=== PATIENT | female | born 1995 | race Caucasian/White ===

== ENCOUNTER 2017-07-29 12:54 | Emergency (ER) | payer MEDICAID ==
[2017-07-29 13:36] VITALS: PULSE 67; RESP 16; TEMP 98.2; O2SAT 97
[2017-07-29 13:48] LABS: COLOR YELLOW; LEUKOCYTE ESTERASE,URINE NEGATIVE (NEGATIVE); NITRITE,URINE NEGATIVE (NEGATIVE)
--- NOTE | 2017-07-29 13:49 | EDPHY ---
H & P Time Seen by Provider: 07/29/17 13:30 HPI/ROS: Chief complaint. Abdominal pain HPI. 22-year-old female presents with upper abdominal pain for 2 days. She describes it has pressure in the epigastrium with some radiation to her back. Nausea without vomiting or diarrhea. Hurts to move. No chest discomfort or shortness of breath. No fever. She does have burning with urination. She has had previous similar symptoms especially around menstrual period. She currently has menstrual period. ROS Constitutional. no fever/chills, no weakness Eyes. no problems with vision ENT. no sore throat, no nasal drainage Cardiovascular. no chest pain Respiratory. no shortness of breath, no cough Abdominal. Upper abdominal pain with nausea . no problems urinating MS. no calf pain/swelling, no neck/back pain, no joint pain Skin. no rash Lymph. no swollen glands Neuro. no headache, no dizziness, no difficulty walking or with speech Past Medical/Surgical History: Cholecystectomy, , asthma Social History: Single, daily smoker, no alcohol Smoking Status: Light smoker Physical Exam: General Appearance: Alert pleasant well-developed female mild distress vital signs are stable Eyes: Pupils equal and round no pallor or injection. ENT, Mouth: Mucous membranes are moist. Respiratory: There are no retractions, lungs are clear to auscultation. Cardiovascular: Regular rate and rhythm. Gastrointestinal: Epigastric tenderness without masses. Normal bowel sounds Neurological: Awake and alert, sensory and motor exams grossly normal. Skin: Warm and dry, no rashes. Musculoskeletal: Neck is supple nontender. Extremities symmetrical, full range of motion. Psychiatric: Patient is oriented X 3, there is no agitation. Constitutional: Initial Vital Signs Temperature (C) 36.8 C 07/29/17 13:34 Heart Rate 67 07/29/17 13:34 Respiratory Rate 16 07/29/17 13:34 Blood Pressure 117/65 07/29/17 13:34 O2 Sat (%) 97 07/29/17 13:34 O2 Delivery Mode Room Air Allergies/Adverse Reactions: Sulfa (Sulfonamide Antibiotics) Allergy (Severe, Verified 07/29/17 13:36) ANAPHYLACTIC Home Medications: Medication Instructions Recorded Albuterol [Proventil Inhaler (RX)] 1 - 2 puffs IH Q4 01/28/13 Cephalexin [Keflex (*)] 500 mg PO TID #21 cap 07/29/17 Famotidine [Pepcid] 40 mg PO DAILY #7 tablet 07/29/17 Medical Decision Making - Diagnostics Imaging Results: Imaging Impressions Abdomen X-Ray 07/29/17 13:58 Impression: Normal upright abdomen. Procedures: IV normal saline. GI cocktail. ED Course/Re-evaluation: Recheck at 2:35 p.m. patient is stable. Patient and I discussed imaging and lab results. We discussed treatment plan including criteria for return importance of follow-up and further evaluation. She expresses understanding and agreement Differential Diagnosis: I have considered gastritis, peptic ulcer disease, pancreatitis. Patient also had dysuria and she does have a urinary tract infection - Data Points Laboratory Results: Laboratory Results 07/29/17 14:20 07/29/17 14:20 07/29/17 07/29/17 07/29/17 14:20 14:20 14:20 WBC 7.59 10^3/uL 10^3/uL (3.80-9.50) RBC 4.98 10^6/uL 10^6/uL (4.18-5.33) Hgb 14.6 g/dL g/dL (12.6-16.3) Hct 42.6 % % (38.0-47.0) MCV 85.5 fL fL (81.5-99.8) MCH 29.3 pg pg (27.9-34.1) MCHC 34.3 g/dL g/dL (32.4-36.7) RDW 13.3 % % (11.5-15.2) Plt Count 252 10^3/uL 10^3/uL (150-400) MPV 9.8 fL fL (8.7-11.7) Neut % (Auto) 60.8 % % (39.3-74.2) Lymph % (Auto) 27.0 % % (15.0-45.0) [place] % (Auto) 8.3 % % (4.5-13.0) Eos % (Auto) 3.3 % % (0.6-7.6) Baso % (Auto) 0.5 % % (0.3-1.7) Nucleat RBC Rel Count 0.0 % % (0.0-0.2) Absolute Neuts (auto) 4.61 10^3/uL 10^3/uL (1.70-6.50) Absolute Lymphs (auto) 2.05 10^3/uL 10^3/uL (1.00-3.00) Absolute Monos (auto) 0.63 10^3/uL 10^3/uL (0.30-0.80) Absolute Eos (auto) 0.25 10^3/uL 10^3/uL (0.03-0.40) Absolute Basos (auto) 0.04 10^3/uL 10^3/uL (0.02-0.10) Absolute Nucleated RBC 0.00 10^3/uL 10^3/uL (0-0.01) Immature Gran % 0.1 % % (0.0-1.1) Immature Gran # 0.01 10^3/uL 10^3/uL (0.00-0.10) Sodium 143 mEq/L mEq/L (134-144) Potassium 4.1 mEq/L mEq/L (3.5-5.2) Chloride 108 mEq/L mEq/L (97-110) Carbon Dioxide 23 mEq/l mEq/l (22-31) Anion Gap 12 mEq/L mEq/L (8-16) BUN 10 mg/dL mg/dL (7-23) Creatinine 0.6 mg/dL mg/dL (0.6-1.0) Estimated GFR > 60 Glucose 79 mg/dL mg/dL (70-100) Calcium 9.7 mg/dL mg/dL (8.5-10.4) Lipase 109 IU/L IU/L (23-300) Beta HCG, Qual NEGATIVE Urine Color Urine Appearance Urine pH Ur Specific [place] Urine Protein Urine Ketones Urine Blood Urine Nitrate Urine Bilirubin Urine Urobilinogen Ur Leukocyte Esterase Urine RBC Urine WBC Ur Epithelial Cells Amorphous Sediment Urine Bacteria Urine Glucose Urine Test 07/29/17 07/29/17 07/29/17 14:00 14:00 13:40 WBC RBC Hgb Hct MCV MCH MCHC RDW Plt Count MPV Neut % (Auto) Lymph % (Auto) [place] % (Auto) Eos % (Auto) Baso % (Auto) Nucleat RBC Rel Count Absolute Neuts (auto) Absolute Lymphs (auto) Absolute Monos (auto) Absolute Eos (auto) Absolute Basos (auto) Absolute Nucleated RBC Immature Gran % Immature Gran # Sodium Potassium Chloride Carbon Dioxide Anion Gap BUN Creatinine Estimated GFR Glucose Calcium Lipase Beta HCG, Qual Urine Color YELLOW Urine Appearance HAZY Urine pH 7.0 (5.0-7.5) Ur Specific [place] 1.020 (1.002-1.030) Urine Protein NEGATIVE (NEGATIVE) Urine Ketones NEGATIVE (NEGATIVE) Urine Blood NEGATIVE (NEGATIVE) Urine Nitrate NEGATIVE (NEGATIVE) Urine Bilirubin NEGATIVE (NEGATIVE) Urine Urobilinogen 0.2 EU EU (0.2-1.0) Ur Leukocyte Esterase NEGATIVE (NEGATIVE) Urine RBC 3-5 /hpf H /hpf (0-3) Urine WBC 5-10 /hpf H /hpf (0-3) Ur Epithelial Cells 2+ /lpf H /lpf (NONE-1+) Amorphous Sediment 2+ /hpf H /hpf (NONE-1+) Urine Bacteria 1+ /hpf H /hpf (NONE SEEN) Urine Glucose NEGATIVE (NEGATIVE) Urine Test NEGATIVE Medications Given: Discontinued Medications Al Hydroxide/Mg Hydroxide (Maalox Susp) 30 ml PO ONCE ONE Stop: 07/29/17 13:59 Last Admin: 07/29/17 14:12 Dose: 30 ml Lidocaine (Lidocaine 2% Viscous) 15 ml PO ONCE ONE Stop: 07/29/17 13:59 Last Admin: 07/29/17 14:12 Dose: 15 ml Departure - Departure Disposition: Home, Routine, Self-Care Clinical Impression: Abdominal pain Qualifiers: Abdominal location: epigastric Qualified Code(s): R10.13 - Epigastric pain Urinary tract infection Qualifiers: Urinary tract infection type: acute cystitis Hematuria presence: without hematuria Qualified Code(s): N30.00 - Acute cystitis without hematuria Condition: Good Instructions: Gastritis (ED), Urinary Tract Infection in Women (ED) Additional Instructions: Pepcid daily for the next week to help settle your stomach. Cephalexin as antibiotic for urinary tract infection. Return for worsening symptoms. Recheck in 2-3 days if not improved Referrals: NONE *PRIMARY CARE P,. [Primary Care Provider] - As per Instructions Jovi Mix MD [Medical Doctor] - 2-3 days, if not improved Prescriptions: Cephalexin [Keflex (*)] 500 mg PO TID #21 cap Famotidine [Pepcid] 40 mg PO DAILY #7 tablet
[2017-07-29] MEDS ORDERED: MAG HYDROX/AL HYDROX/SIMETH 30 ML UDCUP PO ONE (13:58)
[2017-07-29] MEDS ORDERED: LIDOCAINE 2% VISCOUS 15 ML UDCUP PO ONE (13:58)
[2017-07-29 14:05] LABS: AMORPHOUS 2+ /hpf (NONE-1+); BACTERIA 1+ /hpf (NONE SEEN)
[2017-07-29 14:27] LABS: % IMMATURE GRANULYOCYTES 0.1 % (0.0-1.1); ABSOLUTE IMMATURE GRANULOCYTES 0.01 10^3/uL (0.00-0.10); ADD DIFF? NO; ADD MORPH? NO; ADD SCAN? NO; ATYPICAL LYMPHOCYTE FLAG 10 (0-99); FRAGMENT RBC FLAG 0 (0-99); HEMATOCRIT 42.6 % (38.0-47.0); HEMOGLOBIN 14.6 g/dL (12.6-16.3); LEFT SHIFT FLG 0 (0-99); LIPEMIA HEMOLYSIS FLAG 90 (0-99); MEAN CELL HEMOGLOBIN 29.3 pg (27.9-34.1); MEAN CELL HEMOGLOBIN CONCENTR. 34.3 g/dL (32.4-36.7); MEAN CELL VOLUME 85.5 fL (81.5-99.8); MEAN PLATELET VOLUME 9.8 fL (8.7-11.7); PLATELET CLUMPS FLAG 30 (0-99); PLATELET COUNT 252 10^3/uL (150-400); RED BLOOD CELL COUNT 4.98 10^6/uL (4.18-5.33); RED CELL DISTRIBUTION WIDTH 13.3 % (11.5-15.2)
[2017-07-29 14:41] LABS: ANION GAP 12 mEq/L (8-16); CALCIUM 9.7 mg/dL (8.5-10.4); CARBON DIOXIDE 23 mEq/l (22-31); CHLORIDE 108 mEq/L (97-110); CREATININE 0.6 mg/dL (0.6-1.0); GLOMERULAR FILTRATION RATE > 60; GLUCOSE 79 mg/dL (70-100); POTASSIUM 4.1 mEq/L (3.5-5.2); SODIUM 143 mEq/L (134-144)
[2017-07-29 14:59] VITALS: BP 104/69
== END 2017-07-29 14:58 | disposition home or self-care (01) ==
LOC: CED 12:54
DX: N30.00 Acute cystitis without hematuria (principal); B96.89 Other specified bacterial agents as the cause of diseases classified elsewhere; J45.909 Unspecified asthma, uncomplicated; F17.200 Nicotine dependence, unspecified, uncomplicated; Z90.49 Acquired absence of other specified parts of digestive tract
CPT/HCPCS: 74000-PO; 80048-PO; 81003-PO; 81015-PO; 81025-PO; 83690-PO; 84703-PO; 85025-PO